=== PATIENT | male | born 1995 | race Caucasian/White ===

== ENCOUNTER 2021-03-09 13:30 | Emergency (ER) | payer MEDICAID, OTHER ==
[~2021-03-09] VITALS: Ht 170.2 cm; Wt 112.4 kg
--- NOTE | 2021-03-09 14:22 | REP ---
INDICATION: CHEST PAIN COMPARISON: None. TECHNIQUE: Portable AP view of the chest FINDINGS: The mediastinum and cardiac silhouette are stable and within normal limits for portable technique. The lung irving are clear without acute consolidation, effusion, or pneumothorax. Skeletal structures are intact. IMPRESSION: No acute cardiopulmonary process appreciated. <Electronically signed by Yimi Bowser > 03/09/21 [id number]
[2021-03-09 14:39] LABS: BASO % 0.3 % (0.0-1.0); EOS % 0.4 % (0.0-3.0); HEMATOCRIT 43.9 % (42.0-52.0); HEMOGLOBIN 15.2 g/dl (13.5-17.5); LYMPH # 1.5 10^3/uL (1.5-5.0); LYMPH % 13.9 % (24.0-44.0); MEAN CORPUSCULAR HEMOGLOBIN 28.6 pg (27.0-33.0); MEAN CORPUSCULAR HGB CONC 34.6 g/dl (32.0-36.5); MEAN CORPUSCULAR VOLUME 82.7 fl (80.0-96.0); MONO # 0.5 10^3/uL (0.0-0.8); MONO % 4.5 % (2.0-8.0); NEUTROPHILS # 8.8 10^3/uL (1.5-8.5); NEUTROPHILS % 80.5 % (36.0-66.0); PLATELET COUNT, AUTOMATED 251 10^3/uL (150-450); RED BLOOD COUNT 5.31 10^6/uL (4.30-6.10); WHITE BLOOD COUNT 10.9 10^3/uL (4.0-10.0)
[2021-03-09 15:01] LABS: BLOOD UREA NITROGEN 10 MG/DL (7-18); CARBON DIOXIDE LEVEL 26 MEQ/L (21-32); CHLORIDE LEVEL 105 MEQ/L (98-107); CK-MB VALUE MASS 1.7 NG/ML (<3.6); CPK CREATINE PHOSPHOKINASE 273 U/L (39-308); GLOMERULAR FILTRATION RATE > 60.0 (>60); GLUCOSE, FASTING 106 MG/DL (70-100); MB/CK RELATIVE INDEX 0.62 (< OR =4); SODIUM LEVEL 139 MEQ/L (136-145); TROPONIN I < 0.02 NG/ML (< 0.10)
[2021-03-09] MEDS ORDERED: ISOVUE-370 76% 100ML VIAL As Ordered ONE (15:17)
--- NOTE | 2021-03-09 15:42 | REP ---
INDICATION: chest pain and diaphoresis COMPARISON: None. TECHNIQUE: Axial contrast enhanced images from the thoracic inlet to the upper abdomen using pulmonary embolus technique with multiplanar re-formations. 75 ml Isovue 370 intravenous contrast material administered without complication. This CT examination was performed using the following dose reduction techniques: Automated exposure control, adjustment of mA and/or kv according to the patient's size, and use of iterative reconstruction technique. FINDINGS: Satisfactory enhancement of the pulmonary vasculature is achieved, but evaluation is limited due to significant motion artifact. No obvious filling defects are identified although small emboli to the lower lobes cannot definitively be excluded. Further evaluation of the mediastinum demonstrates normal thoracic aorta, heart and pericardium. Grossly normal thyroid gland. The bilateral lung irving are well aerated and clear without consolidation pleural effusion or pneumothorax. Tracheobronchial tree is patent. No adenopathy noted. Surrounding musculoskeletal structures intact limited upper abdomen unremarkable. IMPRESSION: No definite evidence for pulmonary embolus. No acute mediastinal or pleural parenchymal process. <Electronically signed by Yimi Bowser > 03/09/21 [id number]
[2021-03-09 16:30] VITALS: BP 152/107
--- NOTE | 2021-03-09 19:29 | ECGEPIP ---
[facility] - ED Test Date: 2021-03-09 Pat Name: ROM SOLER Department: Room: - Gender: Male Premium Representative: DEYANIRA : 1995 Requested By: CARMINE Vaughan PA-C Order Number: [id number] Reading MD: Yakelin Webb Measurements Intervals [place] Rate: 101 P: 36 DC: 148 QRS: 29 QRSD: 96 T: 4 QT: 372 QTc: 482 Interpretive Statements Sinus tachycardia Nonspecific ST T wave changes Borderline prolonged QTc No prior ECG for comparison Electronically Signed on 03-09-2021 19:28:54 EDT by Yakelin Webb
== END 2021-03-09 16:44 | disposition home or self-care (01) ==
LOC: M ED 13:30
DX: R07.9 Chest pain, unspecified (principal); R00.0 Tachycardia, unspecified
CPT/HCPCS: 36415; 71045; 71275; 80048; 82550; 82553; 85025; 85379; 93005; 93041; 99285; Q9967